=== PATIENT | female | born 2000 | race African-American/Black ===

== ENCOUNTER 2021-07-07 19:15 | Emergency (ER) | payer OTHER ==
[~2021-07-07] VITALS: Ht 172.7 cm; Wt 56.7 kg
[2021-07-07 19:30] VITALS: BP 116/81
[2021-07-07] MEDS ORDERED: IBU600 MG PO (20:41)
== END 2021-07-07 22:08 | disposition home or self-care (01) ==
LOC: ER 19:15
DX: S67.41XA Crushing injury of right wrist and hand, initial encounter (principal); W20.8XXA Other cause of strike by thrown, projected or falling object, initial encounter; Y93.89 Activity, other specified; Y92.89 Other specified places as the place of occurrence of the external cause; Y99.8 Other external cause status